=== PATIENT | male | born 1945 | race Caucasian/White ===

== ENCOUNTER 2020-12-02 12:54 | Emergency (ER) | payer OTHER ==
[2020-12-03 04:17] LABS: SARS-CoV-2 PCR by NAA Not Detected (NotDetected)
== END 2020-12-02 13:42 | disposition home or self-care (01) ==
LOC: ERS 12:54
DX: Z20.822 Contact with and (suspected) exposure to COVID-19 (principal); E11.9 Type 2 diabetes mellitus without complications; J44.9 Chronic obstructive pulmonary disease, unspecified
CPT/HCPCS: 87635; 99283; U0003; U0005

== ENCOUNTER 2021-05-26 14:49 | Emergency (ER) | payer MEDICARE, OTHER ==
[2021-05-26 15:16] LABS: #Basophils 0.1 thou/uL (0.0-0.2); #Eosinphils 0.2 thou/uL (0.0-0.7); #Lymphocytes 2.5 thou/uL (1.20-3.40); #Neutrophils 7.5 thou/uL (1.40-6.50); %Basophils 0.4 % (0.0-1.0); %Eosinophils 1.9 % (0.0-10.0); %Lymphocytes 22.1 % (21.0-51.0); %Monocytes 9.1 % (0.0-10.0); %Neutrophils 66.5 % (42.0-75.0); Hemoglobin 17.1 g/dL (14.0-18.0); Mean Corpuscular HGB CONC 32.4 g/dL (32.0-36.0); Mean Corpuscular Hemoglobin 31.3 pg (27.0-31.0); Mean Corpuscular Volume 96.7 fL (78.0-98.0); Mean Platelet Volume 9.3 fL (7.4-10.4); Platelet Count 207 thou/uL (130-400); Red Blood Cell (RBC) Count 5.45 mill/uL (4.70-6.10); White Blood Cell (WBC) Count 11.3 thou/uL (4.8-10.8)
[2021-05-26 15:36] LABS: ALT (SGPT) 24 U/L (8-55); AST (SGOT) 17 U/L (5-34); Albumin 4.4 g/dL (3.4-4.8); Alkaline Phosphatase 104 U/L (40-110); Anion Gap 16 mmol/L (10-20); BUN (Urea Nitrogen) 18 mg/dL (8.4-25.7); Calc. Creatinine Clearance 0 mL/min (70-130); Calcium 9.6 mg/dL (7.8-10.44); Carbon Dioxide 24 mmol/L (23-31); Chloride 103 mmol/L (98-107); Globulin 3.2 g/dL (2.4-3.5); Glucose 144 mg/dL (83-110); Potassium 4.7 mmol/L (3.5-5.1); Protein, Total 7.6 g/dL (5.8-8.1); Sodium 138 mmol/L (136-145)
[2021-05-26] MEDS ORDERED: Meclizine HCl 25 MG TAB ONE (16:23)
== END 2021-05-26 18:15 | disposition home or self-care (01) ==
LOC: ERS 14:49
DX: R42 Dizziness and giddiness (principal); E11.9 Type 2 diabetes mellitus without complications; I10 Essential (primary) hypertension; F17.210 Nicotine dependence, cigarettes, uncomplicated
CPT/HCPCS: 36415; 70450; 71045; 80053; 84484; 85025; 93005

== ENCOUNTER 2022-03-11 22:47 | Emergency (ER) | payer MEDICARE, OTHER ==
[2022-03-11 23:33] LABS: #Basophils 0.1 thou/uL (0.0-0.2); #Eosinphils 0.2 thou/uL (0.0-0.7); #Lymphocytes 2.4 thou/uL (1.20-3.40); #Monocytes 0.8 thou/uL (0.11-0.59); #Neutrophils 7.7 thou/uL (1.40-6.50); %Basophils 0.8 % (0.0-1.0); %Eosinophils 1.4 % (0.0-10.0); %Lymphocytes 21.6 % (21.0-51.0); %Monocytes 7.3 % (0.0-10.0); %Neutrophils 68.9 % (42.0-75.0); Hemoglobin 16.2 g/dL (14.0-18.0); Mean Corpuscular HGB CONC 32.4 g/dL (32.0-36.0); Mean Corpuscular Hemoglobin 32.1 pg (27.0-31.0); Platelet Count 172 thou/uL (130-400); RBC Distribution Width 12.7 % (11.5-14.5); Red Blood Cell (RBC) Count 5.04 mill/uL (4.70-6.10); White Blood Cell (WBC) Count 11.1 thou/uL (4.8-10.8)
[2022-03-11 23:51] LABS: ALT (SGPT) 21 U/L (8-55); AST (SGOT) 14 U/L (5-34); Albumin 4.2 g/dL (3.4-4.8); Alkaline Phosphatase 73 U/L (40-110); Anion Gap 15 mmol/L (10-20); BUN (Urea Nitrogen) 20 mg/dL (8.4-25.7); Bilirubin, Total 0.5 mg/dL (0.2-1.2); Calc. Creatinine Clearance 0 mL/min (70-130); Calcium 9.3 mg/dL (7.8-10.44); Carbon Dioxide 26 mmol/L (23-31); Chloride 103 mmol/L (98-107); Glucose 178 mg/dL (83-110); Potassium 4.3 mmol/L (3.5-5.1); Protein, Total 7.2 g/dL (5.8-8.1); Sodium 140 mmol/L (136-145)
[2022-03-12] MEDS ORDERED: methylPREDNISolone Sod Succ/PF 125 MG/2 ML VIAL ONE
[2022-03-12] MEDS ORDERED: Magnesium 2 GM/50 ML BAG (IN WATER) ONE (00:19)
[2022-03-12] MEDS ORDERED: Albuterol Sulfate 2.5 mg/3 ml Neb ONE (00:19)
== END 2022-03-12 02:05 | disposition home or self-care (01) ==
LOC: ERS 22:47
DX: J44.1 Chronic obstructive pulmonary disease with (acute) exacerbation (principal); E11.9 Type 2 diabetes mellitus without complications; I10 Essential (primary) hypertension; F17.210 Nicotine dependence, cigarettes, uncomplicated
CPT/HCPCS: 71045; 80053; 83880; 84484; 85025; 93005; 94640; 94760; 96374; 96375; J2930; J3475; J7611; J7620

== ENCOUNTER 2022-03-13 14:16 | Inpatient (IN) | payer MEDICARE, OTHER ==
[2022-03-13] MEDS ORDERED: cefTRIAXone\\ROCEPHIN 1 GM VIAL ONE (16:56)
[2022-03-13 17:02] LABS: #Basophils 0.1 thou/uL (0.0-0.2); #Eosinphils 0.1 thou/uL (0.0-0.7); #Lymphocytes 3.1 thou/uL (1.20-3.40); #Neutrophils 9.6 thou/uL (1.40-6.50); %Basophils 0.5 % (0.0-1.0); %Eosinophils 0.5 % (0.0-10.0); %Lymphocytes 22.7 % (21.0-51.0); %Monocytes 7.2 % (0.0-10.0); %Neutrophils 69.2 % (42.0-75.0); Hemoglobin 15.5 g/dL (14.0-18.0); Mean Corpuscular HGB CONC 32.6 g/dL (32.0-36.0); Mean Corpuscular Hemoglobin 32.1 pg (27.0-31.0); Mean Corpuscular Volume 98.5 fL (78.0-98.0); Mean Platelet Volume 9.2 fL (7.4-10.4); Platelet Count 178 thou/uL (130-400); RBC Distribution Width 12.8 % (11.5-14.5); Red Blood Cell (RBC) Count 4.81 mill/uL (4.70-6.10); White Blood Cell (WBC) Count 13.8 thou/uL (4.8-10.8)
[2022-03-13 17:27] LABS: ALT (SGPT) 20 U/L (8-55); AST (SGOT) 15 U/L (5-34); Albumin 4.1 g/dL (3.4-4.8); Alkaline Phosphatase 66 U/L (40-110); Anion Gap 20 mmol/L (10-20); BUN (Urea Nitrogen) 22 mg/dL (8.4-25.7); Bilirubin, Total 0.4 mg/dL (0.2-1.2); CK (CPK) 83 U/L (30-200); Calc. Creatinine Clearance 0 mL/min (70-130); Calcium 9.5 mg/dL (7.8-10.44); Carbon Dioxide 19 mmol/L (23-31); Chloride 104 mmol/L (98-107); Globulin 3.1 g/dL (2.4-3.5); Glucose 229 mg/dL (83-110); Potassium 3.9 mmol/L (3.5-5.1); Protein, Total 7.2 g/dL (5.8-8.1); Sodium 139 mmol/L (136-145)
[2022-03-13 18:19] LABS: SARS-CoV-2 NAA Rapid Test Not Detected (NotDetected)
[2022-03-13] MEDS ORDERED: Dextrose 5% in Water 1,000 ML IV PRN (19:46)
[2022-03-13] MEDS ORDERED: Azithromycin 500 MG VIAL ONE (19:46)
[2022-03-13] MEDS ORDERED: Dextrose 50% Abboject 50 ML SYRINGE SLOW IVP PRN (19:46)
[2022-03-13] MEDS ORDERED: HumaLOG 300 UNITS/3 ML VIAL SC PRN ×2 (19:46)
[2022-03-13] MEDS ORDERED: Acetaminophen 650 MG Suppository PR PRN (19:53)
[2022-03-13] MEDS ORDERED: Acetaminophen 325 MG TAB PO PRN (19:53)
[2022-03-13] MEDS ORDERED: Ondansetron ODT 4 MG TAB PO PRN (19:53)
[2022-03-13] MEDS ORDERED: Ondansetron PF 4 MG/2 ML Vial IVP PRN (19:53)
[2022-03-13 20:35] LABS: Lactic Acid 1.1 mmol/L (0.5-2.2)
[2022-03-13] MEDS ORDERED: methylPREDNISolone Sod Succ/PF 125 MG/2 ML VIAL IVP SCH (20:45)
[2022-03-13] MEDS: Doxycycline 100 MG in Sodium Chloride 0.9% 100 ML IVPB SCH (21:38)
[2022-03-13 22:07] VITALS: BMI 39.9
[2022-03-13] MEDS: Cefepime 2 GM in Sodium Chloride 0.9% 100 ML IVPB SCH (22:44)
[2022-03-14 06:26] LABS: #Lymphocytes 0.9 thou/uL (1.20-3.40); #Monocytes 0.1 thou/uL (0.11-0.59); #Neutrophils 8.4 thou/uL (1.40-6.50); %Basophils 0.4 % (0.0-1.0); %Eosinophils 0.2 % (0.0-10.0); %Lymphocytes 9.1 % (21.0-51.0); %Monocytes 1.3 % (0.0-10.0); Hemoglobin 15.2 g/dL (14.0-18.0); Mean Corpuscular HGB CONC 33.3 g/dL (32.0-36.0); Mean Corpuscular Volume 99.1 fL (78.0-98.0); Mean Platelet Volume 8.9 fL (7.4-10.4); Platelet Count 165 thou/uL (130-400); RBC Distribution Width 12.6 % (11.5-14.5); Red Blood Cell (RBC) Count 4.59 mill/uL (4.70-6.10); White Blood Cell (WBC) Count 9.4 thou/uL (4.8-10.8)
[2022-03-14 06:52] LABS: Anion Gap 18 mmol/L (10-20); BUN (Urea Nitrogen) 17 mg/dL (8.4-25.7); Calc. Creatinine Clearance 98 mL/min (70-130); Calcium 8.7 mg/dL (7.8-10.44); Carbon Dioxide 20 mmol/L (23-31); Chloride 103 mmol/L (98-107); Glucose 315 mg/dL (83-110); Potassium 4.5 mmol/L (3.5-5.1); Sodium 136 mmol/L (136-145)
[2022-03-14] MEDS: Enoxaparin Sodium 40 MG/0.4 ML SYRINGE SC SCH (08:19)
[2022-03-14] MEDS: methylPREDNISolone Sod Succ 40 MG VIAL IVP SCH (08:19)
[2022-03-14] MEDS: Doxycycline 100 MG in Sodium Chloride 0.9% 100 ML IVPB SCH ×2 (08:25→20:16)
[2022-03-14] MEDS: Cefepime 2 GM in Sodium Chloride 0.9% 100 ML IVPB SCH ×2 (10:12→21:38)
[2022-03-14] MEDS: HumaLOG 300 UNITS/3 ML VIAL SC PRN ×2 (12:07→17:02)
[2022-03-14] MEDS: guaiFENesin ER 600 MG TAB PO SCH (20:15)
[2022-03-14] MEDS ORDERED: guaiFENesin ER 600 MG TAB PO SCH (21:00)
[2022-03-14] MEDS ORDERED: Multivit, Therapeutic 1 TAB PO SCH (21:00)
[2022-03-15] MEDS: HumaLOG 300 UNITS/3 ML VIAL SC PRN ×2 (06:30→12:34)
[2022-03-15] MEDS: Doxycycline 100 MG in Sodium Chloride 0.9% 100 ML IVPB SCH (08:44)
[2022-03-15] MEDS: Enoxaparin Sodium 40 MG/0.4 ML SYRINGE SC SCH (08:45)
[2022-03-15] MEDS: methylPREDNISolone Sod Succ 40 MG VIAL IVP SCH (08:45)
[2022-03-15] MEDS: guaiFENesin ER 600 MG TAB PO SCH (08:45)
[2022-03-15] MEDS: Cefepime 2 GM in Sodium Chloride 0.9% 100 ML IVPB SCH (11:06)
[2022-03-15 15:37] VITALS: BP 140/83; TEMP 98.2
== END 2022-03-15 15:41 | disposition home or self-care (01) | DRG 190 ==
LOC: ERS 14:16 → EEVIPCON 14:16 → T4-B 19:31 → OBSVTOIN 03-14 10:17
PROVIDERS: ADMIT Internal Medicine; ATTEND Family Medicine
DX: J44.1 Chronic obstructive pulmonary disease with (acute) exacerbation (principal); J15.9 Unspecified bacterial pneumonia; E11.9 Type 2 diabetes mellitus without complications; E11.22 Type 2 diabetes mellitus with diabetic chronic kidney disease; N18.2 Chronic kidney disease, stage 2 (mild); Z20.822 Contact with and (suspected) exposure to COVID-19; J44.0 Chronic obstructive pulmonary disease with (acute) lower respiratory infection; E11.65 Type 2 diabetes mellitus with hyperglycemia; F17.210 Nicotine dependence, cigarettes, uncomplicated; Z96.653 Presence of artificial knee joint, bilateral; E66.01 Morbid (severe) obesity due to excess calories; Z71.6 Tobacco abuse counseling; Z68.39 Body mass index [BMI] 39.0-39.9, adult
CPT/HCPCS: 36415; 36416; 71045; 80048; 80053; 82550; 83605; 85025; 87040; 93005; 94640; 96365; 96366; 96367; J0456; J0692; J0696; J1650; J1815; J2920; J2930; J3490; J7620; U0002

== ENCOUNTER 2022-04-16 12:59 | Inpatient (IN) | payer MEDICARE, OTHER ==
[2022-04-16] MEDS ORDERED: Dexamethasone 10 MG/ML VIAL ONE (14:08)
[2022-04-16 14:25] LABS: #Basophils 0.1 thou/uL (0.0-0.2); #Eosinphils 0.1 thou/uL (0.0-0.7); #Lymphocytes 2.5 thou/uL (1.20-3.40); #Monocytes 1.1 thou/uL (0.11-0.59); #Neutrophils 8.8 thou/uL (1.40-6.50); %Basophils 0.5 % (0.0-1.0); %Eosinophils 0.8 % (0.0-10.0); %Lymphocytes 19.5 % (21.0-51.0); %Monocytes 9.1 % (0.0-10.0); %Neutrophils 70.1 % (42.0-75.0); Hemoglobin 15.1 g/dL (14.0-18.0); Mean Corpuscular HGB CONC 32.7 g/dL (32.0-36.0); Mean Corpuscular Hemoglobin 31.7 pg (27.0-31.0); Mean Platelet Volume 8.5 fL (7.4-10.4); Platelet Count 251 thou/uL (130-400); RBC Distribution Width 12.6 % (11.5-14.5); Red Blood Cell (RBC) Count 4.76 mill/uL (4.70-6.10); White Blood Cell (WBC) Count 12.6 thou/uL (4.8-10.8)
[2022-04-16] MEDS ORDERED: Albuterol Sulfate 2.5 mg/3 ml Neb ONE (14:29)
[2022-04-16] MEDS ORDERED: Magnesium Sulfate 2 GM in Sodium Chloride 0.9% 100 ML IVPB SCH (14:45)
[2022-04-16] MEDS ORDERED: Magnesium 2 GM/50 ML(in water) 2 GM in Premix Bag 1 BAG IVPB SCH (14:45)
[2022-04-16 14:56] LABS: ALT (SGPT) 14 U/L (8-55); AST (SGOT) 14 U/L (5-34); Albumin 4.1 g/dL (3.4-4.8); Alkaline Phosphatase 84 U/L (40-110); Anion Gap 16 mmol/L (10-20); BUN (Urea Nitrogen) 13 mg/dL (8.4-25.7); Bilirubin, Total 0.4 mg/dL (0.2-1.2); CK (CPK) 215 U/L (30-200); Calc. Creatinine Clearance 0 mL/min (70-130); Calcium 9.5 mg/dL (7.8-10.44); Carbon Dioxide 25 mmol/L (23-31); Chloride 101 mmol/L (98-107); Globulin 3.4 g/dL (2.4-3.5); Glucose 184 mg/dL (83-110); Potassium 3.9 mmol/L (3.5-5.1); Protein, Total 7.5 g/dL (5.8-8.1); Sodium 138 mmol/L (136-145)
[2022-04-16] MEDS ORDERED: Sodium Chloride 0.45% 1,000 ML IV SCH (17:15)
[2022-04-16] MEDS ORDERED: HYDROcodone/Acetaminophen 10/325 mg Tablet PO PRN (17:17)
[2022-04-16] MEDS ORDERED: Dextrose 5% in Water 1,000 ML IV PRN (17:30)
[2022-04-16] MEDS ORDERED: cefTRIAXone\\ROCEPHIN 2 GM in Sodium Chloride 0.9% 100 ML IVPB SCH (17:30)
[2022-04-16] MEDS ORDERED: Dextrose 50% Abboject 50 ML SYRINGE IVP PRN (17:30)
[2022-04-16 17:42] VITALS: BMI 38.4
[2022-04-16] MEDS: Insulin Regular 300 UNITS/3 ML VIAL SC PRN ×2 (17:50→22:33)
[2022-04-16] MEDS: methylPREDNISolone Sod Succ 40 MG VIAL IVP SCH (18:53)
[2022-04-16] MEDS: Gabapentin 300 MG CAP PO SCH (20:35)
[2022-04-17] MEDS: methylPREDNISolone Sod Succ 40 MG VIAL IVP SCH ×5 (00:02→23:03)
[2022-04-17 00:18] LABS: SARS-CoV-2 PCR by NAA Not Detected (NotDetected)
[2022-04-17] MEDS: Insulin Regular 300 UNITS/3 ML VIAL SC PRN ×4 (05:48→21:03)
[2022-04-17] MEDS: Levothyroxine Sodium 25 MCG TAB PO SCH (05:48)
[2022-04-17] MEDS: Gabapentin 300 MG CAP PO SCH ×2 (08:23→21:03)
[2022-04-17] MEDS: glipiZIDE 10 MG TAB PO SCH ×2 (08:23→16:42)
[2022-04-17] MEDS ORDERED: Sodium Chloride 0.45% 1,000 ML IV SCH (22:30)
[2022-04-18] MEDS: methylPREDNISolone Sod Succ 40 MG VIAL IVP SCH (04:55)
[2022-04-18] MEDS: Insulin Regular 300 UNITS/3 ML VIAL SC PRN (04:55)
[2022-04-18] MEDS: Levothyroxine Sodium 25 MCG TAB PO SCH (04:55)
[2022-04-18] MEDS: Gabapentin 300 MG CAP PO SCH (08:47)
[2022-04-18] MEDS: glipiZIDE 10 MG TAB PO SCH (08:47)
[2022-04-18 11:32] VITALS: BP 121/80; TEMP 98.2
== END 2022-04-18 11:34 | disposition home or self-care (01) | DRG 192 ==
LOC: ERS 12:59 → EEVIPCON 12:59 → T4-B 15:10
PROVIDERS: ADMIT Internal Medicine Critical Care Medicine; ATTEND Internal Medicine Critical Care Medicine
DX: J44.1 Chronic obstructive pulmonary disease with (acute) exacerbation (principal); E11.9 Type 2 diabetes mellitus without complications; Z96.653 Presence of artificial knee joint, bilateral; F17.210 Nicotine dependence, cigarettes, uncomplicated; Z90.49 Acquired absence of other specified parts of digestive tract; Z20.822 Contact with and (suspected) exposure to COVID-19
CPT/HCPCS: 36416; 71045; 80053; 82550; 83880; 84484; 85025; 93005; 94640; 94644; 96365; 96366; 96368; 96375; J0696; J1100; J1815; J1956; J2920; J3475; J3490; J7611; J7620; U0003; U0005